=== PATIENT | female | born 1995 | race Asian ===

== ENCOUNTER 2019-09-21 16:11 | Outpatient (CLI) | payer OTHER ==
[~2019-09-21] VITALS: Ht 160 cm; Wt 64.0 kg
[2019-09-21 17:47] LABS: MICROSCOPIC INDICATED
[2019-09-21 17:50] LABS: CREATININE,URINE RANDOM 64.6 mg/dL
[2019-09-21 17:55] LABS: BASOPHILS # (AUTO) 0.04 x10^3/uL (0-0.1); BASOPHILS % (AUTO) 1 % (0-1); EOSINOPHILS # (AUTO) 0.02 x10^3/uL (0-0.4); EOSINOPHILS % (AUTO) 0 % (1-7); LYMPHOCYTES # (AUTO) 1.15 x10^3/uL (1-3.4); LYMPHOCYTES % (AUTO) 13 % (22-44); MD NO; MEAN CORPUSCULAR HEMOGLOBIN 30.9 pg (27.0-34.8); MEAN CORPUSCULAR VOLUME 93.6 fL (80-100); MEAN PLATELET VOLUME 9.1 fL (7.4-10.4); MONOCYTES # (AUTO) 0.52 x10^3/uL (0.2-0.8); MONOCYTES % (AUTO) 6 % (2-9); NEUTROPHILS # (AUTO) 7.09 x10^3/uL (1.8-6.8); NEUTROPHILS % (AUTO) 80 % (42-75); PLATELET COUNT 199 x10^3/uL (130-400); RED BLOOD COUNT 4.31 x10^6/uL (3.82-5.3); RED CELL DISTRIBUTION WIDTH 13.6 % (9.6-15.2)
[2019-09-21 17:59] LABS: ALANINE AMINOTRANSFERASE 17 U/L (12-78); ALBUMIN 2.9 g/dL (3.4-5.0); ANION GAP 6 mmol/L (5-15); CALCIUM 9.1 mg/dL (8.5-10.1); CHLORIDE 107 mmol/L (98-107); CREATININE 0.64 mg/dL (0.55-1.02)
[2019-09-21 18:02] LABS: ALKALINE PHOSPHATASE 162 U/L (45-117); BILIRUBIN,TOTAL 0.8 mg/dL (0.2-1.0); TOTAL PROTEIN 7.7 g/dL (6.4-8.2)
== END 2019-09-21 18:30 | disposition home or self-care (01) ==
LOC: LDOP 16:11
PROVIDERS: ATTEND Obstetrics & Gynecology
DX: O26.893 Other specified pregnancy related conditions, third trimester (principal); Z3A.40 40 weeks gestation of pregnancy
CPT/HCPCS: 36415; 59025; 80053; 81001; 82570; 84156; 84550; 85025; 99201; G0463

== ENCOUNTER 2019-09-22 04:13 | Outpatient (CLI) | payer OTHER ==
[~2019-09-22] VITALS: Ht 160 cm; Wt 63.6 kg
[2019-09-22 04:28] VITALS: BP 119/85
[2019-09-22] MEDS ORDERED: ZOLPIDEM 5MG TABLET ONE (05:29)
[2019-09-22] MEDS ORDERED: ZOLPIDEM 5MG TABLET PO ONE (05:30)
== END 2019-09-22 05:30 | disposition home or self-care (01) ==
LOC: LDOP 04:13
PROVIDERS: ATTEND Obstetrics & Gynecology
DX: O26.893 Other specified pregnancy related conditions, third trimester (principal); Z3A.40 40 weeks gestation of pregnancy
CPT/HCPCS: 59025; 99211; G0463

== ENCOUNTER 2019-09-22 14:41 | Inpatient (IN) | payer OTHER ==
[~2019-09-22] VITALS: Ht 160 cm; Wt 63.6 kg
[2019-09-22] MEDS ORDERED: FENTANYL PF 500 MCG, BUPIVACAINE/PF 0.5%, 30ML 62.5 ML in SODIUM CHLORIDE 0.9% 177.5 ML EPIDCONT SCH ×2 (15:04→15:30)
[2019-09-22] MEDS ORDERED: D5%-LACTATED RINGERS 1,000 ML IV SCH (15:04)
[2019-09-22] MEDS ORDERED: OXYTOCIN 30U/ 0.9% NaCL 500ML 500 ML IV ONE (15:04)
[2019-09-22] MEDS ORDERED: NEWBORN KIT ONE ×3 (15:20→21:57)
[2019-09-22] MEDS ORDERED: OXYTOCIN 30U/ 0.9% NaCL 500ML 0 ML ONE (15:21)
[2019-09-22] MEDS ORDERED: LIDOCAINE 1%, 20ML ONE ×2 (15:21→15:35)
[2019-09-22] MEDS ORDERED: MISOPROSTOL 200 MCG TABLET ONE ×2 (15:21→15:35)
[2019-09-22] MEDS ORDERED: CALCIUM CARBONATE 500 MG TAB.CHEW PO PRN (15:30)
[2019-09-22] MEDS ORDERED: ONDANSETRON 2MG/ML, 2ML IVPush PRN ×2 (15:30→16:30)
[2019-09-22] MEDS ORDERED: TERBUTALINE 1 MG/ML, 1ML SQ PRN (15:30)
[2019-09-22] MEDS ORDERED: FENTANYL PF 100 MCG/2ML IV PRN (15:30)
[2019-09-22] MEDS ORDERED: TERBUTALINE 1 MG/ML, 1ML IVPush PRN (15:30)
[2019-09-22] MEDS ORDERED: FENTANYL PF 100 MCG/2ML IVPush PRN (15:30)
[2019-09-22 15:34] LABS: BASOPHILS # (AUTO) 0.01 x10^3/uL (0-0.1); BASOPHILS % (AUTO) 0 % (0-1); EOSINOPHILS % (AUTO) 0 % (1-7); LYMPHOCYTES # (AUTO) 0.87 x10^3/uL (1-3.4); LYMPHOCYTES % (AUTO) 7 % (22-44); MD NO; MEAN CORPUSCULAR HEMOGLOBIN 30.2 pg (27.0-34.8); MEAN CORPUSCULAR HGB CONC 32.8 g/dL (32.4-35.8); MEAN PLATELET VOLUME 8.8 fL (7.4-10.4); MONOCYTES # (AUTO) 0.21 x10^3/uL (0.2-0.8); MONOCYTES % (AUTO) 2 % (2-9); NEUTROPHILS # (AUTO) 11.76 x10^3/uL (1.8-6.8); NEUTROPHILS % (AUTO) 92 % (42-75); PLATELET COUNT 220 x10^3/uL (130-400); RED BLOOD COUNT 4.45 x10^6/uL (3.82-5.3); RED CELL DISTRIBUTION WIDTH 13.4 % (9.6-15.2)
[2019-09-22] MEDS ORDERED: OXYTOCIN 30U/ 0.9% NaCL 500ML 500 ML ONE ×2 (15:35→23:30)
[2019-09-22] MEDS: LACTATED RINGERS 1,000 ML IV SCH ×2 (15:52→20:33)
[2019-09-22 16:00] VITALS: BP 133/88
[2019-09-22] MEDS ORDERED: BUPIVACAINE 0.25% ONE (16:07)
[2019-09-22] MEDS: FENTANYL/BUPIV./NS/PF 250 ML EPIDCONT SCH (16:26)
[2019-09-22] MEDS ORDERED: DIPHENHYDRAMINE 50 MG/ML, 1ML IVPush PRN (16:30)
[2019-09-22] MEDS ORDERED: EPHEDRINE 50 MG/ML, 1ML IVPush PRN (16:30)
[2019-09-22] MEDS ORDERED: LACTATED RINGERS 1,000 ML IVBOLUS PRN (16:30)
[2019-09-22] MEDS ORDERED: NALOXONE 0.4 MG/ML, 1ML IVPush PRN (16:30)
[2019-09-22 19:11] VITALS: BP 122/82
[2019-09-22] MEDS: OXYTOCIN 30U/ 0.9% NaCL 500ML 500 ML IV SCH (22:11)
[2019-09-22] MEDS ORDERED: ONDANSETRON 2MG/ML, 2ML IV PRN (22:30)
[2019-09-22] MEDS ORDERED: METHYLERGONOVINE 0.2 MG/ML IM PRN (22:30)
[2019-09-22] MEDS ORDERED: SIMETHICONE 80 MG CHEW TAB PO PRN (22:30)
[2019-09-22] MEDS ORDERED: MISOPROSTOL 200 MCG TABLET PR PRN (22:30)
[2019-09-22] MEDS ORDERED: ACETAMINOPHEN 325 MG TABLET PO PRN ×2 (22:30)
[2019-09-22] MEDS ORDERED: OXYcodone/APAP 5/325MG TABLET PO PRN ×2 (22:30)
[2019-09-23] MEDS: LACTATED RINGERS 1,000 ML IV SCH ×3 (00:26→16:26)
[2019-09-23 00:36] VITALS: BP 138/90
[2019-09-23 05:48] VITALS: BP 137/90
[2019-09-23 06:42] LABS: BASOPHILS # (AUTO) 0.05 x10^3/uL (0-0.1); BASOPHILS % (AUTO) 0 % (0-1); EOSINOPHILS # (AUTO) 0.01 x10^3/uL (0-0.4); EOSINOPHILS % (AUTO) 0 % (1-7); LYMPHOCYTES # (AUTO) 1.25 x10^3/uL (1-3.4); LYMPHOCYTES % (AUTO) 9 % (22-44); MD NO; MEAN CORPUSCULAR HEMOGLOBIN 30.6 pg (27.0-34.8); MEAN CORPUSCULAR VOLUME 92.7 fL (80-100); MEAN PLATELET VOLUME 8.5 fL (7.4-10.4); MONOCYTES # (AUTO) 0.91 x10^3/uL (0.2-0.8); MONOCYTES % (AUTO) 7 % (2-9); NEUTROPHILS # (AUTO) 11.69 x10^3/uL (1.8-6.8); NEUTROPHILS % (AUTO) 84 % (42-75); PLATELET COUNT 171 x10^3/uL (130-400); RED CELL DISTRIBUTION WIDTH 13.3 % (9.6-15.2)
[2019-09-23] MEDS: PRENATAL VIT/IRON/FA 1 EACH TABLET PO SCH (07:20)
[2019-09-23] MEDS: DOCUSATE 100 MG CAPSULE PO PRN ×2 (07:20→20:13)
[2019-09-23] MEDS: IBUPROFEN 600 MG TABLET PO PRN ×2 (07:21→21:44)
[2019-09-23 07:55] VITALS: BP 128/87
[2019-09-23] MEDS: OXYTOCIN 30U/ 0.9% NaCL 500ML 500 ML IV SCH ×2 (08:11→17:16)
[2019-09-23] MEDS: FENTANYL/BUPIV./NS/PF 250 ML EPIDCONT SCH (16:26)
[2019-09-23 19:10] VITALS: BP 124/82
[2019-09-24] MEDS: LACTATED RINGERS 1,000 ML IV SCH (00:26)
[2019-09-24] MEDS: OXYTOCIN 30U/ 0.9% NaCL 500ML 500 ML IV SCH (04:11)
[2019-09-24] MEDS: IBUPROFEN 600 MG TABLET PO PRN (08:03)
[2019-09-24] MEDS: DOCUSATE 100 MG CAPSULE PO PRN (08:03)
[2019-09-24] MEDS: PRENATAL VIT/IRON/FA 1 EACH TABLET PO SCH (08:03)
[2019-09-24 08:07] VITALS: BP 126/83
[2019-09-24] MEDS ORDERED: IBUP-1222 PO (10:05)
== END 2019-09-24 14:30 | disposition home or self-care (01) | DRG 807 ==
LOC: LDOP 14:41 → LDIP 15:15 → 2NW 23:49
PROVIDERS: ADMIT Obstetrics & Gynecology; ATTEND Obstetrics & Gynecology
PROC: 10E0XZZ Delivery of Products of Conception, External Approach (ICD-10-PCS; principal; 2019-09-22)
PROC: 0KQM0ZZ Repair Perineum Muscle, Open Approach (ICD-10-PCS; 2019-09-22)
PROC: 3E0R3BZ Introduction of Anesthetic Agent into Spinal Canal, Percutaneous Approach (ICD-10-PCS; 2019-09-22)
PROC: 00HU33Z Insertion of Infusion Device into Spinal Canal, Percutaneous Approach (ICD-10-PCS; 2019-09-22)
PROC: 10907ZC Drainage of Amniotic Fluid, Therapeutic from Products of Conception, Via Natural or Artificial Opening (ICD-10-PCS; 2019-09-22)
DX: O70.1 Second degree perineal laceration during delivery (principal); Z37.0 Single live birth; Z3A.38 38 weeks gestation of pregnancy; Z82.3 Family history of stroke; Z82.49 Family history of ischemic heart disease and other diseases of the circulatory system; Z83.3 Family history of diabetes mellitus
CPT/HCPCS: 36415; 85025; 86850; 86900; G0378; J2590; J7120